=== PATIENT | male | born 1960 | race Caucasian/White ===

== ENCOUNTER 2022-08-05 14:19 | Emergency (ER) | payer BC, OTHER ==
[~2022-08-05] VITALS: Ht 182.9 cm; Wt 81.8 kg
[2022-08-05 14:28] VITALS: BP 120/90
[2022-08-06] MEDS ORDERED: CIPR-202 PO (11:09)
== END 2022-08-05 17:04 | disposition left against medical advice (07) ==
LOC: ER 14:19
DX: R79.9 Abnormal finding of blood chemistry, unspecified (principal); Z53.21 Procedure and treatment not carried out due to patient leaving prior to being seen by health care provider
CPT/HCPCS: 99281

== ENCOUNTER 2022-08-06 04:59 | Emergency (ER) | payer OTHER ==
[~2022-08-06] VITALS: Ht 182.9 cm; Wt 81.8 kg
[2022-08-06 08:41] LABS: CLARITY,URINE SLIGHTLY CLOUDY (Clear); COLOR,URINE YELLOW (Yellow); GLUCOSE, URINE NEGATIVE (Neg); KETONES,URINE NEGATIVE (Neg); LEUKOCYTE ESTERASE ,URINE NEGATIVE (Neg); NITRITES, URINE NEGATIVE (Neg); OCCULT BLOOD,URINE LARGE (Neg); PROTEIN,URINE NEGATIVE (Neg); UROBILINOGEN,URINE 0.2 E.U/dL (0.2-1.0)
[2022-08-06 08:55] LABS: UA COLLECTION TYPE CLN CATCH MIDSTREAM
[2022-08-06 08:58] LABS: BACTERIA,URINE FEW /HPF (Neg); MUCUS STRANDS NONE SEEN /LPF (Neg); RBC,URINE TNTC /HPF (0-2); SQUAMOUS EPITHELIAL CELL,UR FEW /LPF (FEW)
[2022-08-06 09:45] VITALS: BP 149/104
[2022-08-06] MEDS ORDERED: ciprofloxacin 250mg tablet PO ONE (11:05)
[2022-08-06] MEDS ORDERED: CIPR-202 PO (11:09)
== END 2022-08-06 11:39 | disposition home or self-care (01) ==
LOC: ER 05:00
DX: N39.0 Urinary tract infection, site not specified (principal); R31.9 Hematuria, unspecified; Z79.899 Other long term (current) drug therapy
CPT/HCPCS: 81001; 87088; 99285

== ENCOUNTER 2023-12-20 01:35 | Inpatient (IN) | payer OTHER ==
[~2023-12-20] VITALS: Ht 182.9 cm; Wt 82.5 kg
[2023-12-20] VITALS (16 sets, daily range): BP systolic 118–144; BP diastolic 80–98; PULSE 59–69; RESP 11–22; TEMP 97.1; O2SAT 92–95
[2023-12-20] MEDS: ondansetron/PF 4mg/2ml inj IV ONE (01:59)
[2023-12-20] MEDS: fentaNYL/PF 50MCG/1 ML 2ML syringe IV ONE ×2 (01:59→02:22)
[2023-12-20 02:07] LABS: BASOPHILS # (AUTO) 0.1 X10'3 (0-0.2); BASOPHILS % (AUTO) 0.9 % (0-1); EOSINOPHILS # (AUTO) 0.4 X10'3 (0-0.9); EOSINOPHILS % (AUTO) 2.7 % (0-6); HEMATOCRIT 44.9 % (42.0-52.0); HEMOGLOBIN 15.1 g/dl (14.0-17.9); LYMPHOCYTES # (AUTO) 1.9 X10'3 (1.1-4.8); LYMPHOCYTES % (AUTO) 13.6 % (21-51); MEAN CORPUSCULAR HEMOGLOBIN 29.4 PG (27.0-31.0); MEAN CORPUSCULAR HGB CONC 33.6 g/dL (33.0-36.5); MEAN CORPUSCULAR VOLUME 87.3 FL (78-98); MONOCYTES # (AUTO) 1.7 X10'3 (0-0.9); MONOCYTES % (AUTO) 12.2 % (2-12); NEUTROPHILS % (AUTO) 70.6 % (42-75); PLATELET COUNT 215 X10'3 (140-440); RED BLOOD COUNT 5.14 X10'6 (4.70-6.10); RED CELL DISTRIBUTION WIDTH 14.8 % (11.5-14.5); WHITE BLOOD COUNT 14.2 X10'3 (4.5-11.0)
[2023-12-20] MEDS ORDERED: iohexol 350MG/ML 100ml bottle IV ONE (02:20)
[2023-12-20 02:24] LABS: D-DIMER 19.14 MG/L FEU (0-0.50); INR 1.1 INR
[2023-12-20 02:27] LABS: ALBUMIN 3.8 G/DL (3.4-5.0); ANION GAP 9 (8-16); BLOOD UREA NITROGEN 29 MG/DL (7-18); BUN/CREATININE RATIO 16.1 (10.0-20.0); CALCIUM 8.7 MG/DL (8.5-10.1); CHLORIDE 104 MMOL/L (99-107); GLUCOSE 94 MG/DL (70-104); MAGNESIUM 2.3 MG/DL (1.5-2.4); POTASSIUM 3.6 MMOL/L (3.5-5.1); PRO BRAIN NATRIURETIC PEPTIDE 933 PG/ML (0-125); SODIUM 138 MMOL/L (135-145); TOTAL CARBON DIOXIDE 24.7 MMOL/L (24-32); eCRCL 47 ML/MIN; eGFR 38 ML/MIN
[2023-12-20] MEDS: niCARDipine-NS 40mg/200ml IVPB 200 ML IV ONE (02:57)
[2023-12-20] MEDS: morphine 10mg/ml inj. IV ONE (02:58)
[2023-12-20] MEDS: normal saline 1000ML IV soln IVB ONE (03:40)
[2023-12-20] MEDS: metoprolol tartrate 1mg/ml inj IV ONE ×2 (03:42→03:55)
[2023-12-20] MEDS ORDERED: acetaminophen 325mg tablet PO PRN (04:15)
[2023-12-20] MEDS: normal saline 1000ml 1,000 ML IV SCH (04:33)
[2023-12-20] MEDS: HYDROmorphone 1 mg/ml syringe IV ONE (04:34)
[2023-12-20 05:16] LABS: THYROID STIMULATING HORMONE 2.59 ulU/ml (0.34-4.50)
[2023-12-20] MEDS: morphine 2 MG/ML inj. syringe IV PRN (06:05)
[2023-12-20] MEDS: niCARDipine-NS 40mg/200ml IVPB 200 ML IV PRN (08:53)
[2023-12-20] MEDS: morphine 4 MG/ML inj SYRINge IV PRN (09:13)
[2023-12-20] MEDS ORDERED: NO HOME MEDS (10:52)
[2023-12-20] MEDS: hydrALAZINE 20mg/ml inj. IV SCH (10:57)
[2023-12-20] MEDS: folic acid 1mg tablet PO SCH (11:11)
[2023-12-20] MEDS: metoprolol tartrate 50mg tablet PO SCH (11:11)
[2023-12-20] MEDS: MULTIVIT-MIN/FERROUS GLUCONATE 9 MG/15 ML LIQUID PO SCH (11:11)
[2023-12-20] MEDS: thiamine 100mg tablet PO SCH (11:12)
[2023-12-20] MEDS: HYDROmorphone 1 mg/ml syringe IV PRN (11:14)
[2023-12-20] MEDS: ondansetron/PF 4mg/2ml inj IV PRN (19:37)
[2023-12-21] VITALS (23 sets, daily range): BP systolic 102–156; BP diastolic 48–92; PULSE 57–77; RESP 11–29; O2SAT 90–96
[2023-12-21 02:19] LABS: BASOPHILS # (AUTO) 0.1 X10'3 (0-0.2); BASOPHILS % (AUTO) 0.4 % (0-1); EOSINOPHILS # (AUTO) 0.1 X10'3 (0-0.9); EOSINOPHILS % (AUTO) 0.4 % (0-6); HEMATOCRIT 42.8 % (42.0-52.0); HEMOGLOBIN 14.1 g/dl (14.0-17.9); LYMPHOCYTES # (AUTO) 0.7 X10'3 (1.1-4.8); LYMPHOCYTES % (AUTO) 4.2 % (21-51); MEAN PLATELET VOLUME 8.1 FL (7.4-10.4); MONOCYTES # (AUTO) 2.2 X10'3 (0-0.9); NEUTROPHILS # (AUTO) 12.7 X10'3 (1.8-7.7); PLATELET COUNT 189 X10'3 (140-440); RED BLOOD COUNT 4.86 X10'6 (4.70-6.10); RED CELL DISTRIBUTION WIDTH 14.9 % (11.5-14.5); WHITE BLOOD COUNT 15.7 X10'3 (4.5-11.0)
[2023-12-21 02:33] LABS: ALBUMIN 3.4 G/DL (3.4-5.0); ALBUMIN/GLOBULIN RATIO 0.9 (1.1-1.5); ALKALINE PHOSPHATASE 72 IU/L (46-116); ANION GAP 9 (8-16); ASPARTATE AMINO TRANSFERASE 7 U/L (10-37); BILIRUBIN,TOTAL 0.6 MG/DL (0.1-1.0); BLOOD UREA NITROGEN 31 MG/DL (7-18); BUN/CREATININE RATIO 18.3 (10.0-20.0); CALCIUM 8.5 MG/DL (8.5-10.1); CHLORIDE 104 MMOL/L (99-107); CREATININE 1.69 MG/DL (0.60-1.10); GLUCOSE 122 MG/DL (70-104); POTASSIUM 3.8 MMOL/L (3.5-5.1); SODIUM 137 MMOL/L (135-145); TOTAL CARBON DIOXIDE 23.7 MMOL/L (24-32); TOTAL PROTEIN 7.1 G/DL (6.4-8.2); eCRCL 50 ML/MIN; eGFR 41 ML/MIN
[2023-12-21 02:49] LABS: ALANINE AMINOTRANSFERASE < 6 U/L (12-78)
[2023-12-21] MEDS: HYDROmorphone 1 mg/ml syringe IV PRN ×3 (06:51→15:20)
[2023-12-21] MEDS ORDERED: chlordiazePOXIDE 25mg capsule PO PRN (08:35)
[2023-12-21] MEDS: NIFEdipine XL 30mg tablet PO SCH (09:22)
[2023-12-21] MEDS: chlordiazePOXIDE 25mg capsule PO SCH (09:53)
[2023-12-21] MEDS: HYDROcodone/acetaminophen 10/325mg tab PO SCH (11:02)
[2023-12-21] MEDS ORDERED: iohexol 350MG/ML 100ml bottle IV ONE (11:10)
[2023-12-21] MEDS: pantoprazole 40 MG vial IV SCH (11:59)
[2023-12-21] MEDS: docusate sod 100mg capsule PO SCH (11:59)
[2023-12-21] MEDS: normal saline 1000ml 1,000 ML IV SCH (16:17)
[2023-12-21] MEDS: labetalol 20mg/4ml (5mg/ml) syringe IV PRN (17:26)
[2023-12-22] VITALS (24 sets, daily range): BP systolic 112–143; BP diastolic 47–102; PULSE 67–88; RESP 12–21; O2SAT 90–95
[2023-12-22 04:30] LABS: BASOPHILS % (AUTO) 0.3 % (0-1); EOSINOPHILS # (AUTO) 0.1 X10'3 (0-0.9); EOSINOPHILS % (AUTO) 0.5 % (0-6); HEMATOCRIT 39.8 % (42.0-52.0); HEMOGLOBIN 13.2 g/dl (14.0-17.9); MEAN CORPUSCULAR HEMOGLOBIN 29.1 PG (27.0-31.0); MEAN CORPUSCULAR HGB CONC 33.2 g/dL (33.0-36.5); MEAN CORPUSCULAR VOLUME 87.6 FL (78-98); MEAN PLATELET VOLUME 8.3 FL (7.4-10.4); MONOCYTES # (AUTO) 2.6 X10'3 (0-0.9); NEUTROPHILS # (AUTO) 10.8 X10'3 (1.8-7.7); NEUTROPHILS % (AUTO) 74.2 % (42-75); PLATELET COUNT 146 X10'3 (140-440); RED BLOOD COUNT 4.55 X10'6 (4.70-6.10); RED CELL DISTRIBUTION WIDTH 14.6 % (11.5-14.5); WHITE BLOOD COUNT 14.5 X10'3 (4.5-11.0)
[2023-12-22 04:38] LABS: ALANINE AMINOTRANSFERASE 12 U/L (12-78); ALBUMIN/GLOBULIN RATIO 0.8 (1.1-1.5); ALKALINE PHOSPHATASE 66 IU/L (46-116); ANION GAP 11 (8-16); ASPARTATE AMINO TRANSFERASE 5 U/L (10-37); BILIRUBIN,TOTAL 0.5 MG/DL (0.1-1.0); BLOOD UREA NITROGEN 30 MG/DL (7-18); BUN/CREATININE RATIO 19.2 (10.0-20.0); CALCIUM 8.5 MG/DL (8.5-10.1); CHLORIDE 105 MMOL/L (99-107); CREATININE 1.56 MG/DL (0.60-1.10); GLUCOSE 112 MG/DL (70-104); POTASSIUM 3.8 MMOL/L (3.5-5.1); SODIUM 136 MMOL/L (135-145); TOTAL CARBON DIOXIDE 20.1 MMOL/L (24-32); TOTAL PROTEIN 6.6 G/DL (6.4-8.2); eCRCL 54 ML/MIN; eGFR 45 ML/MIN
[2023-12-22 04:56] LABS: PLATELET ESTIMATE NORMAL; TOTAL CELLS COUNTED 100
[2023-12-22] MEDS: multivitamins, therapeutics tablet PO SCH (07:21)
[2023-12-22] MEDS: magnesium hydroxide 30ml (MOM) UD suspension PO PRN (08:30)
[2023-12-22 11:14] LABS: ABG BASE EXCESS -4.2 mmol/L (-2.0-3.0); ABG HCO3 19.5 mmol/L (21.0-28.0); ABG PCO2 (T) 33.5 mmHg (35.0-48.0); ABG PH (T) 7.388 (7.350-7.450); ABG PO2 (T) 68.9 mmHg (83.0-108.0); ALLEN'S TEST POSITIVE; FCOHb 0.8 % (0.5-1.5); FHHb 6.9 % (0.0-5.0); FMetHb 0.3 % (0.0-1.5); MODE Simple mask; PATIENT TEMPERATURE 38.1; TOTAL HEMOGLOBIN 14.2 G/dl (13.5-17.5)
[2023-12-22] MEDS: acetaminophen 325mg tablet PO PRN (16:34)
[2023-12-22] MEDS ORDERED: chlordiazePOXIDE 25mg capsule PO PRN (19:10)
[2023-12-22] MEDS: levoFLOXACIN-Levaquin 750MG/D5 150 ML IV STA (19:17)
[2023-12-22 19:24] LABS: BILIRUBIN,URINE NEGATIVE (Neg); CLARITY,URINE SLIGHTLY CLOUDY (Clear); COLOR,URINE YELLOW (Yellow); GLUCOSE, URINE NEGATIVE (Neg); KETONES,URINE NEGATIVE (Neg); LEUKOCYTE ESTERASE ,URINE TRACE (Neg); OCCULT BLOOD,URINE MODERATE (Neg); PROTEIN,URINE 30 mg/dl (Neg); UROBILINOGEN,URINE 0.2 E.U/dL (0.2-1.0)
[2023-12-22 19:45] LABS: NITRITES, URINE NEGATIVE (Neg); UA COLLECTION TYPE NON-SPECIFIED
[2023-12-22 19:47] LABS: RBC,URINE 20-50 /HPF (0-2)
[2023-12-22 19:48] LABS: BACTERIA,URINE 1+ /HPF (Neg); FINE GRANULAR CAST 0-3 /LPF (NEGATIVE); MUCUS STRANDS FEW /LPF (Neg); SQUAMOUS EPITHELIAL CELL,UR FEW /LPF (FEW)
[2023-12-22] MEDS: chlordiazePOXIDE 25mg capsule PO SCH (20:12)
[2023-12-22] MEDS: CefTRIAXone/D5W-Rocephin 1gm 50 ML IV ONE (20:12)
[2023-12-22] MEDS: HYDROcodone/acetaminophen 10/325mg tab PO PRN (21:35)
[2023-12-22 23:17] LABS: URINE AMPHETAMINE SCREEN POSITIVE (Neg); URINE BARBITUATE SCREEN NEGATIVE (Neg); URINE BENZODIAZEPINES SCREEN POSITIVE (Neg); URINE CANNABINOID SCREEN NEGATIVE (Neg); URINE COCAINE SCREEN NEGATIVE (Neg); URINE METHADONE SCREEN NEGATIVE (Neg); URINE OPIATE SCREEN POSITIVE (Neg); URINE PHENCYCLIDINE SCREEN NEGATIVE (Neg)
[2023-12-23] VITALS (24 sets, daily range): BP systolic 101–125; BP diastolic 56–84; PULSE 71–92; RESP 12–31; O2SAT 89–95
[2023-12-23 01:39] LABS: ABG BASE EXCESS -5.6 mmol/L (-2.0-3.0); ABG HCO3 17.6 mmol/L (21.0-28.0); ABG OXYGEN SATURATION 89.6 % (94.0-98.0); ABG PCO2 (T) 29.2 mmHg (35.0-48.0); ABG PH (T) 7.401 (7.350-7.450); ABG PO2 (T) 57.5 mmHg (83.0-108.0); ALLEN'S TEST Modified; FCOHb 0.7 % (0.5-1.5); FHHb 10.3 % (0.0-5.0); FLOW 12 L/min; FMetHb 0.3 % (0.0-1.5); FO2Hb 88.7 % (94.0-98.0); MODE Salter-HFNC; PATIENT TEMPERATURE 37.7; TOTAL HEMOGLOBIN 13.4 G/dl (13.5-17.5)
[2023-12-23 03:57] LABS: BASOPHILS % (AUTO) 0.3 % (0-1); EOSINOPHILS # (AUTO) 0.2 X10'3 (0-0.9); EOSINOPHILS % (AUTO) 1.3 % (0-6); HEMATOCRIT 37.8 % (42.0-52.0); HEMOGLOBIN 12.6 g/dl (14.0-17.9); LYMPHOCYTES % (AUTO) 6.9 % (21-51); MEAN CORPUSCULAR HEMOGLOBIN 29.2 PG (27.0-31.0); MEAN CORPUSCULAR HGB CONC 33.3 g/dL (33.0-36.5); MEAN CORPUSCULAR VOLUME 87.9 FL (78-98); MEAN PLATELET VOLUME 8.7 FL (7.4-10.4); MONOCYTES # (AUTO) 2.6 X10'3 (0-0.9); MONOCYTES % (AUTO) 17.9 % (2-12); NEUTROPHILS # (AUTO) 10.9 X10'3 (1.8-7.7); NEUTROPHILS % (AUTO) 73.6 % (42-75); PLATELET COUNT 152 X10'3 (140-440); RED CELL DISTRIBUTION WIDTH 14.9 % (11.5-14.5); WHITE BLOOD COUNT 14.8 X10'3 (4.5-11.0)
[2023-12-23 04:12] LABS: ALANINE AMINOTRANSFERASE 12 U/L (12-78); ALBUMIN 2.5 G/DL (3.4-5.0); ALBUMIN/GLOBULIN RATIO 0.7 (1.1-1.5); ALKALINE PHOSPHATASE 59 IU/L (46-116); ANION GAP 10 (8-16); ASPARTATE AMINO TRANSFERASE 16 U/L (10-37); BILIRUBIN,TOTAL 0.4 MG/DL (0.1-1.0); BLOOD UREA NITROGEN 36 MG/DL (7-18); BUN/CREATININE RATIO 22.1 (10.0-20.0); CALCIUM 8.3 MG/DL (8.5-10.1); CHLORIDE 106 MMOL/L (99-107); CREATININE 1.63 MG/DL (0.60-1.10); GLUCOSE 126 MG/DL (70-104); POTASSIUM 3.8 MMOL/L (3.5-5.1); SODIUM 136 MMOL/L (135-145); TOTAL CARBON DIOXIDE 19.6 MMOL/L (24-32); TOTAL PROTEIN 6.3 G/DL (6.4-8.2); eCRCL 52 ML/MIN; eGFR 43 ML/MIN
[2023-12-23 05:20] LABS: ABG BASE EXCESS -5.9 mmol/L (-2.0-3.0); ABG HCO3 17.5 mmol/L (21.0-28.0); ABG OXYGEN SATURATION 88.3 % (94.0-98.0); ABG PCO2 (T) 30.1 mmHg (35.0-48.0); ABG PH (T) 7.387 (7.350-7.450); ABG PO2 (T) 56.2 mmHg (83.0-108.0); ALLEN'S TEST Modified; FCOHb 0.8 % (0.5-1.5); FHHb 11.6 % (0.0-5.0); FLOW 25 L/min; FMetHb 0.3 % (0.0-1.5); FO2Hb 87.3 % (94.0-98.0); TOTAL HEMOGLOBIN 13.6 G/dl (13.5-17.5)
[2023-12-23 05:33] LABS: MAGNESIUM 1.9 MG/DL (1.5-2.4)
[2023-12-23] MEDS: levoFLOXACIN-Levaquin 750MG/D5 150 ML IV SCH (07:10)
[2023-12-23] MEDS: CefTRIAXone/D5W-Rocephin 1gm 50 ML IV SCH (07:10)
[2023-12-23] MEDS: furosemide 10 MG/1 ML 10ml inj IV ONE (09:01)
[2023-12-23] MEDS: lactose-reduced food (Ensure Enlive) - 237ml bottle PO SCH (13:08)
[2023-12-23] MEDS ORDERED: magnesium sulf-water 4G/100mL 100 ML IV PRN (16:05)
[2023-12-23] MEDS ORDERED: potassium Cl 20 mEq SR tablet PO PRN ×2 (16:05)
[2023-12-23] MEDS ORDERED: magnesium sulf-water 2g/50mL 50 ML IV PRN (16:05)
[2023-12-23] MEDS ORDERED: magnesium Cl slow-release 64mg tablet PO PRN (16:05)
[2023-12-23] MEDS: heparin, porcine 5000 units/ml vial SQ SCH (16:55)
[2023-12-23] MEDS: K and/or MAG REPLACEMENT MC SCH (18:56)
[2023-12-23] MEDS: cloNIDine 0.1 mg tablet PO PRN (19:38)
[2023-12-23] MEDS: potassium Cl 40MEQ/1/2NS 520ml 520 ML IV PRN (19:57)
== END 2023-12-23 21:02 | disposition left against medical advice (07) | DRG 189 ==
LOC: ER 01:36 → ED HOLD 04:18 → CICU 2S 08:00
PROVIDERS: ADMIT Student in an Organized Health Care Education/Training Program; ATTEND Family Medicine
PROC: 5A0935A Assistance with Respiratory Ventilation, Less than 24 Consecutive Hours, High Flow/Velocity Cannula (ICD-10-PCS; principal; 2023-12-23)
DX: J96.01 Acute respiratory failure with hypoxia (principal); I71.019 Dissection of thoracic aorta, unspecified; J18.9 Pneumonia, unspecified organism; N17.0 Acute kidney failure with tubular necrosis; R91.1 Solitary pulmonary nodule; K59.00 Constipation, unspecified; Z53.21 Procedure and treatment not carried out due to patient leaving prior to being seen by health care provider; F10.10 Alcohol abuse, uncomplicated; I10 Essential (primary) hypertension; Z85.46 Personal history of malignant neoplasm of prostate; Z87.891 Personal history of nicotine dependence
CPT/HCPCS: 36415; 36600; 71045; 71275; 74174; 80048; 80053; 80305; 81001; 82803; 82948; 83605; 83735; 83880; 84132; 84145; 84443; 84484; 85007; 85018; 85025; 85379; 85610; 86885; 86900; 86901; 87040; 87077; 87081; 87088; 87186; 93005; 93306; 93970; 94668; 94760; 96365; 96375; 97161; 97530; 99291; A4615; A4620; A6449; G0378; J0360; J0696; J1170; J1171; J1644; J1940; J1956; J2270; J2274; J2405; J2470; J3010; J3480; J3490; J7030; J7040; Q9967

== ENCOUNTER 2023-12-23 23:04 | Inpatient (IN) | payer OTHER ==
[~2023-12-23] VITALS: Ht 182.9 cm; Wt 81.0 kg
[~2023-12-23 23:04] MED LIST: NO HOME MEDS
[2023-12-23 23:53] LABS: BASOPHILS % (AUTO) 0.3 % (0-1); EOSINOPHILS # (AUTO) 0.2 X10'3 (0-0.9); EOSINOPHILS % (AUTO) 1.6 % (0-6); HEMATOCRIT 37.6 % (42.0-52.0); HEMOGLOBIN 12.5 g/dl (14.0-17.9); LYMPHOCYTES # (AUTO) 0.7 X10'3 (1.1-4.8); MEAN CORPUSCULAR HEMOGLOBIN 28.9 PG (27.0-31.0); MEAN CORPUSCULAR HGB CONC 33.2 g/dL (33.0-36.5); MEAN CORPUSCULAR VOLUME 87.2 FL (78-98); MEAN PLATELET VOLUME 8.9 FL (7.4-10.4); MONOCYTES # (AUTO) 2.4 X10'3 (0-0.9); MONOCYTES % (AUTO) 16.3 % (2-12); NEUTROPHILS # (AUTO) 11.3 X10'3 (1.8-7.7); NEUTROPHILS % (AUTO) 76.8 % (42-75); PLATELET COUNT 199 X10'3 (140-440); RED BLOOD COUNT 4.32 X10'6 (4.70-6.10); RED CELL DISTRIBUTION WIDTH 15.1 % (11.5-14.5); WHITE BLOOD COUNT 14.7 X10'3 (4.5-11.0)
[2023-12-24] VITALS (15 sets, daily range): BP systolic 104–150; BP diastolic 73–101; PULSE 89–117; RESP 17–23; TEMP 97.9–98.1; O2SAT 96–99
[2023-12-24 00:10] LABS: ALANINE AMINOTRANSFERASE 21 U/L (12-78); ALBUMIN 2.6 G/DL (3.4-5.0); ALBUMIN/GLOBULIN RATIO 0.6 (1.1-1.5); ALKALINE PHOSPHATASE 62 IU/L (46-116); ANION GAP 13 (8-16); ASPARTATE AMINO TRANSFERASE 22 U/L (10-37); BILIRUBIN,TOTAL 0.4 MG/DL (0.1-1.0); BLOOD UREA NITROGEN 43 MG/DL (7-18); BUN/CREATININE RATIO 20.8 (10.0-20.0); CALCIUM 8.2 MG/DL (8.5-10.1); CHLORIDE 105 MMOL/L (99-107); CREATININE 2.07 MG/DL (0.60-1.10); GLUCOSE 109 MG/DL (70-104); POTASSIUM 3.9 MMOL/L (3.5-5.1); SODIUM 137 MMOL/L (135-145); TOTAL CARBON DIOXIDE 19.5 MMOL/L (24-32); TOTAL PROTEIN 6.7 G/DL (6.4-8.2); eCRCL 41 ML/MIN; eGFR 33 ML/MIN
[2023-12-24 00:20] LABS: PRO BRAIN NATRIURETIC PEPTIDE 1864 PG/ML (0-125)
[2023-12-24 00:36] LABS: APTT 32 SECONDS (22-32); INR 1.1 INR; PROTHROMBIN TIME 11.9 SECONDS (9.0-12.0)
[2023-12-24] MEDS ORDERED: haloperidol 5mg tablet PO PRN (01:00)
[2023-12-24] MEDS ORDERED: mag hydrox/Alum hydrox/simeth 30ml oral suspension PO PRN (01:00)
[2023-12-24] MEDS ORDERED: dextrose 50%-water 50ml dispensing syringe IV PRN (01:00)
[2023-12-24] MEDS ORDERED: magnesium sulf-water 4G/100mL 100 ML IV PRN (01:00)
[2023-12-24] MEDS ORDERED: magnesium Cl slow-release 64mg tablet PO PRN (01:00)
[2023-12-24] MEDS ORDERED: LORazepam 1 MG tablet PO PRN (01:00)
[2023-12-24] MEDS ORDERED: potassium Cl 20 mEq SR tablet PO PRN ×2 (01:00)
[2023-12-24] MEDS ORDERED: magnesium sulf-water 2g/50mL 50 ML IV PRN (01:00)
[2023-12-24] MEDS ORDERED: acetaminophen 325mg tablet PO PRN (01:00)
[2023-12-24] MEDS: HYDROmorphone inj. 0.5 MG/0.5 ML DISP.SYRIN IV PRN (01:15)
[2023-12-24] MEDS: ondansetron/PF 4mg/2ml inj IV PRN (01:15)
[2023-12-24] MEDS: amLODIPine 5mg tablet PO ONE (01:30)
[2023-12-24] MEDS: normal saline 1000ml 1,000 ML IV SCH (01:58)
[2023-12-24] MEDS: normal saline 500ml IV soln 500 ML IV ONE (01:59)
[2023-12-24] MEDS: K and/or MAG REPLACEMENT MC SCH (08:00)
[2023-12-24] MEDS ORDERED: losartan 25mg tablet PO SCH (08:00)
[2023-12-24] MEDS ORDERED: carVEDilol 12.5mg tablet PO SCH (08:00)
[2023-12-24] MEDS: levoFLOXACIN-Levaquin 750MG/D5 150 ML IV SCH (08:41)
[2023-12-24] MEDS: thiamine 100mg/ml 2ml inj. IV SCH (08:48)
[2023-12-24] MEDS: folic acid 1mg/0.2ml inj IV SCH (09:26)
[2023-12-24] MEDS: LORazepam 2 mg/ml vial IV PRN ×2 (09:29→17:28)
[2023-12-24] MEDS: metoprolol tartrate 1mg/ml inj IV ONE ×2 (11:15→17:28)
[2023-12-24] MEDS: ipratropium 0.5 MG/2.5ML nebule IH SCH (12:00)
[2023-12-24 13:59] LABS: URINE AMPHETAMINE SCREEN NEGATIVE (Neg); URINE BARBITUATE SCREEN NEGATIVE (Neg); URINE BENZODIAZEPINES SCREEN POSITIVE (Neg); URINE CANNABINOID SCREEN NEGATIVE (Neg); URINE COCAINE SCREEN NEGATIVE (Neg); URINE METHADONE SCREEN NEGATIVE (Neg); URINE OPIATE SCREEN POSITIVE (Neg); URINE PHENCYCLIDINE SCREEN NEGATIVE (Neg)
[2023-12-24 14:33] LABS: ALANINE AMINOTRANSFERASE 20 U/L (12-78); ALBUMIN 2.3 G/DL (3.4-5.0); ALBUMIN/GLOBULIN RATIO 0.6 (1.1-1.5); ALKALINE PHOSPHATASE 51 IU/L (46-116); ANION GAP 11 (8-16); ASPARTATE AMINO TRANSFERASE 18 U/L (10-37); BILIRUBIN,TOTAL 0.5 MG/DL (0.1-1.0); BLOOD UREA NITROGEN 37 MG/DL (7-18); BUN/CREATININE RATIO 22.2 (10.0-20.0); CALCIUM 8.1 MG/DL (8.5-10.1); CHLORIDE 106 MMOL/L (99-107); CREATININE 1.67 MG/DL (0.60-1.10); GLUCOSE 90 MG/DL (70-104); POTASSIUM 3.4 MMOL/L (3.5-5.1); SODIUM 138 MMOL/L (135-145); TOTAL CARBON DIOXIDE 20.8 MMOL/L (24-32); TOTAL PROTEIN 6.2 G/DL (6.4-8.2); eCRCL 50 ML/MIN; eGFR 42 ML/MIN
[2023-12-24] MEDS: haloperidol lactate 5mg/ml inj IM PRN (16:50)
[2023-12-24] MEDS: vancomycin/NS 1 GM ADD-VANTAGE 250 ML IV SCH (17:43)
[2023-12-24] MEDS ORDERED: metoprolol tartrate 25mg tablet PO SCH (20:00)
[2023-12-24] MEDS: diltiazem-NS 100mg/100ml 100 ML IV SCH (22:08)
[2023-12-25] VITALS (30 sets, daily range): BP systolic 103–150; BP diastolic 77–98; PULSE 65–119; RESP 17–30; TEMP 97.3–99.5; O2SAT 88–98
[2023-12-25] MEDS: haloperidol lactate 5mg/ml inj IM PRN (01:30)
[2023-12-25 07:53] LABS: BASOPHILS % (AUTO) 0.4 % (0-1); EOSINOPHILS # (AUTO) 0.2 X10'3 (0-0.9); EOSINOPHILS % (AUTO) 1.4 % (0-6); HEMATOCRIT 36.3 % (42.0-52.0); HEMOGLOBIN 12.1 g/dl (14.0-17.9); LYMPHOCYTES # (AUTO) 0.7 X10'3 (1.1-4.8); LYMPHOCYTES % (AUTO) 6.4 % (21-51); MEAN CORPUSCULAR HEMOGLOBIN 29.1 PG (27.0-31.0); MEAN CORPUSCULAR HGB CONC 33.3 g/dL (33.0-36.5); MEAN CORPUSCULAR VOLUME 87.2 FL (78-98); MEAN PLATELET VOLUME 8.6 FL (7.4-10.4); MONOCYTES % (AUTO) 17.7 % (2-12); NEUTROPHILS # (AUTO) 8.4 X10'3 (1.8-7.7); NEUTROPHILS % (AUTO) 74.1 % (42-75); PLATELET COUNT 203 X10'3 (140-440); RED BLOOD COUNT 4.17 X10'6 (4.70-6.10); RED CELL DISTRIBUTION WIDTH 15.2 % (11.5-14.5); WHITE BLOOD COUNT 11.3 X10'3 (4.5-11.0)
[2023-12-25 08:09] LABS: ALBUMIN 2.6 G/DL (3.4-5.0); ANION GAP 15 (8-16); BLOOD UREA NITROGEN 25 MG/DL (7-18); BUN/CREATININE RATIO 17.6 (10.0-20.0); CALCIUM 8.4 MG/DL (8.5-10.1); CHLORIDE 106 MMOL/L (99-107); CREATININE 1.42 MG/DL (0.60-1.10); GLUCOSE 83 MG/DL (70-104); MAGNESIUM 1.8 MG/DL (1.5-2.4); POTASSIUM 3.2 MMOL/L (3.5-5.1); SODIUM 142 MMOL/L (135-145); TOTAL CARBON DIOXIDE 20.8 MMOL/L (24-32); eCRCL 59 ML/MIN; eGFR 51 ML/MIN
[2023-12-25 08:29] LABS: PLATELET ESTIMATE NORMAL; TOTAL CELLS COUNTED 100
[2023-12-25] MEDS: potassium Cl 40MEQ/1/2NS 520ml 520 ML IV PRN (08:58)
[2023-12-25 09:28] LABS: ETHANOL < 10 MG/DL (<10)
[2023-12-25 11:28] LABS: FERRITIN 738 NG/ML (26-388)
[2023-12-25] MEDS ORDERED: FINA5TAB11 PO (12:08)
[2023-12-25] MEDS ORDERED: FLO0.4C PO (12:08)
[2023-12-25] MEDS ORDERED: vancomycin/NS 1 GM ADD-VANTAGE 250 ML IV SCH (12:31)
[2023-12-25] MEDS: lactose-reduced food (Ensure Enlive) - 237ml bottle PO SCH (13:00)
[2023-12-25] MEDS: metoprolol tartrate 1mg/ml inj IV SCH (14:21)
[2023-12-25] MEDS: normal saline 1000ml 1,000 ML IV SCH (14:25)
[2023-12-25] MEDS: ipratropium 0.5 MG/2.5ML nebule IH SCH (15:19)
[2023-12-25] MEDS: labetalol 20mg/4ml (5mg/ml) syringe IV ONE ×2 (20:30→22:11)
[2023-12-25] MEDS ORDERED: esmolol/sodium cl bag 250 ML IV SCH (20:30)
[2023-12-25] MEDS: vancomycin/NS 1 GM ADD-VANTAGE 250 ML IV SCH (20:52)
[2023-12-25] MEDS: nitroGLYCERIN-Tridil 50MG/D5W 250 ML IV SCH (20:54)
[2023-12-26] VITALS (19 sets, daily range): BP systolic 115–146; BP diastolic 77–95; PULSE 73–93; RESP 17–26; TEMP 97–100.9; O2SAT 92–96
[2023-12-26] MEDS: HYDROmorphone/PF 0.2 MG/ML SYRINGE IV PRN (01:22)
[2023-12-26 06:43] LABS: ALBUMIN 2.6 G/DL (3.4-5.0); ANION GAP 14 (8-16); BLOOD UREA NITROGEN 23 MG/DL (7-18); BUN/CREATININE RATIO 15.5 (10.0-20.0); CALCIUM 8.4 MG/DL (8.5-10.1); CHLORIDE 109 MMOL/L (99-107); CREATININE 1.48 MG/DL (0.60-1.10); GLUCOSE 99 MG/DL (70-104); POTASSIUM 3.5 MMOL/L (3.5-5.1); SODIUM 144 MMOL/L (135-145); TOTAL CARBON DIOXIDE 21.4 MMOL/L (24-32); eCRCL 57 ML/MIN; eGFR 48 ML/MIN
[2023-12-26 06:45] LABS: BASOPHILS # (AUTO) 0.1 X10'3 (0-0.2); BASOPHILS % (AUTO) 0.4 % (0-1); EOSINOPHILS # (AUTO) 0.2 X10'3 (0-0.9); EOSINOPHILS % (AUTO) 2.1 % (0-6); HEMOGLOBIN 11.9 g/dl (14.0-17.9); LYMPHOCYTES # (AUTO) 0.6 X10'3 (1.1-4.8); LYMPHOCYTES % (AUTO) 5.6 % (21-51); MEAN CORPUSCULAR HEMOGLOBIN 28.9 PG (27.0-31.0); MEAN CORPUSCULAR HGB CONC 33.1 g/dL (33.0-36.5); MEAN CORPUSCULAR VOLUME 87.2 FL (78-98); MEAN PLATELET VOLUME 8.8 FL (7.4-10.4); MONOCYTES # (AUTO) 1.9 X10'3 (0-0.9); MONOCYTES % (AUTO) 16.4 % (2-12); NEUTROPHILS # (AUTO) 8.6 X10'3 (1.8-7.7); NEUTROPHILS % (AUTO) 75.5 % (42-75); PLATELET COUNT 243 X10'3 (140-440); RED BLOOD COUNT 4.13 X10'6 (4.70-6.10); WHITE BLOOD COUNT 11.3 X10'3 (4.5-11.0)
[2023-12-26 07:44] LABS: TOTAL CELLS COUNTED 100
[2023-12-26 07:45] LABS: PLATELET ESTIMATE NORMAL
[2023-12-26 08:13] LABS: PROSTATE SPECIFIC AG, SERUM 20.2 ng/mL (0.0-4.0); PSA, FREE 1.61 ng/mL
[2023-12-26] MEDS: labetalol 20mg/4ml (5mg/ml) syringe IV PRN (09:40)
[2023-12-26] MEDS: magnesium hydroxide 30ml (MOM) UD suspension PO PRN (09:49)
[2023-12-26] MEDS: VANCOMYCIN LEVEL IV ONE (19:38)
[2023-12-26] MEDS: acetaminophen 1,000mg/100ml IV 100 ML IV ONE (22:52)
[2023-12-27] VITALS (19 sets, daily range): BP systolic 113–166; BP diastolic 76–109; PULSE 79–110; RESP 14–32; TEMP 96.8–98.9; O2SAT 93–97
[2023-12-27 07:15] LABS: BASOPHILS % (AUTO) 0.3 % (0-1); EOSINOPHILS # (AUTO) 0.3 X10'3 (0-0.9); EOSINOPHILS % (AUTO) 2.2 % (0-6); HEMATOCRIT 36.9 % (42.0-52.0); HEMOGLOBIN 12.1 g/dl (14.0-17.9); LYMPHOCYTES # (AUTO) 0.6 X10'3 (1.1-4.8); LYMPHOCYTES % (AUTO) 4.8 % (21-51); MEAN CORPUSCULAR HEMOGLOBIN 28.8 PG (27.0-31.0); MEAN CORPUSCULAR HGB CONC 32.9 g/dL (33.0-36.5); MEAN CORPUSCULAR VOLUME 87.3 FL (78-98); MEAN PLATELET VOLUME 8.3 FL (7.4-10.4); MONOCYTES # (AUTO) 2.3 X10'3 (0-0.9); MONOCYTES % (AUTO) 16.9 % (2-12); NEUTROPHILS # (AUTO) 10.1 X10'3 (1.8-7.7); NEUTROPHILS % (AUTO) 75.8 % (42-75); PLATELET COUNT 257 X10'3 (140-440); RED BLOOD COUNT 4.22 X10'6 (4.70-6.10); RED CELL DISTRIBUTION WIDTH 15.3 % (11.5-14.5); WHITE BLOOD COUNT 13.3 X10'3 (4.5-11.0)
[2023-12-27 07:25] LABS: ALBUMIN 2.7 G/DL (3.4-5.0); ANION GAP 11 (8-16); BLOOD UREA NITROGEN 22 MG/DL (7-18); BUN/CREATININE RATIO 15.2 (10.0-20.0); CALCIUM 8.5 MG/DL (8.5-10.1); CHLORIDE 108 MMOL/L (99-107); CREATININE 1.45 MG/DL (0.60-1.10); GLUCOSE 95 MG/DL (70-104); POTASSIUM 3.5 MMOL/L (3.5-5.1); SODIUM 141 MMOL/L (135-145); eCRCL 58 ML/MIN; eGFR 49 ML/MIN
[2023-12-27] MEDS: nitroGLYCERIN-Tridil 50MG/D5W 250 ML IV SCH (13:00)
[2023-12-27] MEDS: chlordiazePOXIDE 25mg capsule PO SCH (17:25)
[2023-12-27] MEDS ORDERED: labetalol 20mg/4ml (5mg/ml) syringe IV SCH (20:00)
[2023-12-27] MEDS: labetalol 100mg tablet PO SCH (21:13)
[2023-12-28] VITALS (26 sets, daily range): BP systolic 111–145; BP diastolic 74–97; PULSE 67–93; RESP 16–24; TEMP 97.7–99.8; O2SAT 93–95
[2023-12-28 07:52] LABS: BASOPHILS # (AUTO) 0.1 X10'3 (0-0.2); BASOPHILS % (AUTO) 0.5 % (0-1); EOSINOPHILS # (AUTO) 0.2 X10'3 (0-0.9); EOSINOPHILS % (AUTO) 1.2 % (0-6); HEMATOCRIT 36.9 % (42.0-52.0); HEMOGLOBIN 12.1 g/dl (14.0-17.9); LYMPHOCYTES % (AUTO) 7.6 % (21-51); MEAN CORPUSCULAR HEMOGLOBIN 28.7 PG (27.0-31.0); MEAN CORPUSCULAR HGB CONC 32.9 g/dL (33.0-36.5); MEAN CORPUSCULAR VOLUME 87.3 FL (78-98); MEAN PLATELET VOLUME 8.4 FL (7.4-10.4); MONOCYTES # (AUTO) 2.3 X10'3 (0-0.9); MONOCYTES % (AUTO) 16.8 % (2-12); NEUTROPHILS % (AUTO) 73.9 % (42-75); PLATELET COUNT 270 X10'3 (140-440); RED BLOOD COUNT 4.23 X10'6 (4.70-6.10); RED CELL DISTRIBUTION WIDTH 15.1 % (11.5-14.5); WHITE BLOOD COUNT 13.5 X10'3 (4.5-11.0)
[2023-12-28 07:54] LABS: ALBUMIN 2.4 G/DL (3.4-5.0); ANION GAP 10 (8-16); BLOOD UREA NITROGEN 25 MG/DL (7-18); BUN/CREATININE RATIO 16.2 (10.0-20.0); C-REACTIVE PROTEIN 23.18 MG/DL (0.0-0.5); CALCIUM 8.3 MG/DL (8.5-10.1); CHLORIDE 109 MMOL/L (99-107); CREATININE 1.54 MG/DL (0.60-1.10); GLUCOSE 102 MG/DL (70-104); MAGNESIUM 2.3 MG/DL (1.5-2.4); POTASSIUM 3.7 MMOL/L (3.5-5.1); SODIUM 142 MMOL/L (135-145); TOTAL CARBON DIOXIDE 23.3 MMOL/L (24-32); eCRCL 55 ML/MIN; eGFR 46 ML/MIN
[2023-12-28] MEDS: tamsulosin 0.4mg capsule PO SCH (08:19)
[2023-12-28] MEDS: thiamine 100mg tablet PO SCH (08:19)
[2023-12-28] MEDS: folic acid 1mg tablet PO SCH (08:19)
[2023-12-28] MEDS: finasteride 5mg tablet PO SCH (11:39)
[2023-12-28] MEDS: chlordiazePOXIDE 25mg capsule NG SCH (16:46)
[2023-12-28] MEDS: lactose-reduced food (Ensure Enlive) - 237ml bottle NG SCH (18:00)
[2023-12-28] MEDS: labetalol 100mg tablet NG SCH (19:30)
[2023-12-28] MEDS ORDERED: iohexol 350MG/ML 100ml bottle IV ONE (20:03)
[2023-12-28] MEDS: acetaminophen 325mg tablet NG PRN (23:40)
[2023-12-29] VITALS (13 sets, daily range): BP systolic 102–124; BP diastolic 71–86; PULSE 64–82; RESP 13–24; TEMP 97.6–98.8; O2SAT 91–97
[2023-12-29] MEDS: thiamine 100mg tablet NG SCH (07:15)
[2023-12-29] MEDS: folic acid 1mg tablet NG SCH (07:15)
[2023-12-29 07:17] LABS: BASOPHILS % (AUTO) 0.3 % (0-1); EOSINOPHILS # (AUTO) 0.3 X10'3 (0-0.9); EOSINOPHILS % (AUTO) 2.2 % (0-6); HEMATOCRIT 33.1 % (42.0-52.0); HEMOGLOBIN 11.1 g/dl (14.0-17.9); LYMPHOCYTES # (AUTO) 0.9 X10'3 (1.1-4.8); LYMPHOCYTES % (AUTO) 6.7 % (21-51); MEAN CORPUSCULAR HEMOGLOBIN 29.3 PG (27.0-31.0); MEAN CORPUSCULAR HGB CONC 33.4 g/dL (33.0-36.5); MEAN CORPUSCULAR VOLUME 87.7 FL (78-98); MEAN PLATELET VOLUME 8.3 FL (7.4-10.4); MONOCYTES % (AUTO) 15.2 % (2-12); NEUTROPHILS # (AUTO) 10.1 X10'3 (1.8-7.7); NEUTROPHILS % (AUTO) 75.6 % (42-75); PLATELET COUNT 246 X10'3 (140-440); RED BLOOD COUNT 3.77 X10'6 (4.70-6.10); RED CELL DISTRIBUTION WIDTH 15.2 % (11.5-14.5); WHITE BLOOD COUNT 13.4 X10'3 (4.5-11.0)
[2023-12-29 07:37] LABS: ALBUMIN 2.2 G/DL (3.4-5.0); ANION GAP 8 (8-16); BLOOD UREA NITROGEN 28 MG/DL (7-18); BUN/CREATININE RATIO 18.3 (10.0-20.0); CALCIUM 7.9 MG/DL (8.5-10.1); CHLORIDE 109 MMOL/L (99-107); CREATININE 1.53 MG/DL (0.60-1.10); FREE T4 (FREE THYROXINE) 1.22 NG/DL (0.73-1.40); GLUCOSE 103 MG/DL (70-104); MAGNESIUM 2.2 MG/DL (1.5-2.4); POTASSIUM 3.4 MMOL/L (3.5-5.1); SODIUM 140 MMOL/L (135-145); THYROID STIMULATING HORMONE 1.59 ulU/ml (0.34-4.50); TOTAL CARBON DIOXIDE 23.1 MMOL/L (24-32); eCRCL 55 ML/MIN; eGFR 46 ML/MIN
[2023-12-29] MEDS ORDERED: magnesium sulf-water 2g/50mL 50 ML IV PRN (16:40)
[2023-12-29] MEDS ORDERED: potassium Cl 20 mEq SR tablet PO PRN (16:40)
[2023-12-29] MEDS ORDERED: magnesium sulf-water 4G/100mL 100 ML IV PRN (16:40)
[2023-12-29] MEDS ORDERED: magnesium Cl slow-release 64mg tablet PO PRN (16:40)
[2023-12-29] MEDS ORDERED: potassium Cl 40MEQ/1/2NS 520ml 520 ML IV PRN (16:40)
[2023-12-29] MEDS: potassium Cl 20 mEq SR tablet PO PRN (19:13)
[2023-12-30] VITALS (28 sets, daily range): BP systolic 111–140; BP diastolic 63–91; PULSE 67–95; RESP 16–24; TEMP 97.9–101; O2SAT 90–98
[2023-12-30 07:26] LABS: MAGNESIUM 2.1 MG/DL (1.5-2.4); PREALBUMIN 8.2 MG/DL (19-36)
[2023-12-30] MEDS ORDERED: chlordiazePOXIDE 25mg capsule NG SCH (08:00)
[2023-12-30] MEDS ORDERED: chlordiazePOXIDE 25mg capsule PO SCH (09:15)
[2023-12-30] MEDS ORDERED: folic acid 1mg tablet PO SCH (09:18)
[2023-12-30] MEDS: folic acid 1mg tablet PO SCH ×2 (09:50)
[2023-12-30] MEDS: chlordiazePOXIDE 25mg capsule PO SCH (09:50)
[2023-12-30 10:33] LABS: ABG BASE EXCESS -0.9 mmol/L (-2.0-3.0); ABG HCO3 21.2 mmol/L (21.0-28.0); ABG OXYGEN SATURATION 95.1 % (94.0-98.0); ABG PCO2 (T) 27.9 mmHg (35.0-48.0); ABG PH (T) 7.499 (7.350-7.450); ABG PO2 (T) 73.4 mmHg (83.0-108.0); ALLEN'S TEST POSITIVE; FCOHb 0.4 % (0.5-1.5); FHHb 4.9 % (0.0-5.0); FLOW 4 L/min; FMetHb 0.3 % (0.0-1.5); FO2Hb 94.4 % (94.0-98.0); MODE NASAL CANNULA; TOTAL HEMOGLOBIN 12.1 G/dl (13.5-17.5)
[2023-12-30] MEDS: acetaminophen 325mg tablet PO PRN (12:47)
[2023-12-30] MEDS: lactose-reduced food (Ensure Enlive) - 237ml bottle PO SCH (13:22)
[2023-12-31] VITALS (15 sets, daily range): BP systolic 111–140; BP diastolic 79–96; PULSE 68–100; RESP 12–20; TEMP 98.2–98.9; O2SAT 91–95
[2023-12-31] MEDS: haloperidol lactate 5mg/ml inj IVH PRN (03:30)
[2023-12-31 06:52] LABS: ALANINE AMINOTRANSFERASE 84 U/L (12-78); ALBUMIN 2.3 G/DL (3.4-5.0); ALBUMIN/GLOBULIN RATIO 0.5 (1.1-1.5); ALKALINE PHOSPHATASE 72 IU/L (46-116); ANION GAP 9 (8-16); ASPARTATE AMINO TRANSFERASE 68 U/L (10-37); BILIRUBIN,TOTAL 0.4 MG/DL (0.1-1.0); BLOOD UREA NITROGEN 20 MG/DL (7-18); BUN/CREATININE RATIO 13.6 (10.0-20.0); CALCIUM 8.3 MG/DL (8.5-10.1); CHLORIDE 105 MMOL/L (99-107); CREATININE 1.47 MG/DL (0.60-1.10); GLUCOSE 101 MG/DL (70-104); SODIUM 138 MMOL/L (135-145); TOTAL CARBON DIOXIDE 23.6 MMOL/L (24-32); TOTAL PROTEIN 6.6 G/DL (6.4-8.2); eCRCL 57 ML/MIN; eGFR 49 ML/MIN
[2023-12-31] MEDS ORDERED: QUEtiapine 25mg tablet PO SCH (08:00)
[2023-12-31] MEDS: QUEtiapine 25mg tablet PO SCH ×2 (11:43→19:04)
[2023-12-31] MEDS: labetalol 100mg tablet NG SCH (14:00)
[2023-12-31] MEDS ORDERED: labetalol 100mg tablet NG SCH (14:00)
[2023-12-31] MEDS: hydrALAZINE 25 MG tablet PO SCH (16:00)
[2023-12-31] MEDS ORDERED: hyDRALAzine 10mg tablet PO SCH (16:00)
[2023-12-31] MEDS: amLODIPine 5mg tablet PO SCH (19:11)
[2023-12-31] MEDS: normal saline 1000ml 1,000 ML IV SCH (23:20)
[2024-01-01] VITALS (15 sets, daily range): BP systolic 103–122; BP diastolic 58–99; PULSE 81–95; RESP 14–24; TEMP 97.4–99.2; O2SAT 90–96
[2024-01-01 06:00] LABS: BASOPHILS # (AUTO) 0.1 X10'3 (0-0.2); BASOPHILS % (AUTO) 0.4 % (0-1); EOSINOPHILS # (AUTO) 0.3 X10'3 (0-0.9); EOSINOPHILS % (AUTO) 1.9 % (0-6); HEMATOCRIT 37.5 % (42.0-52.0); HEMOGLOBIN 12.5 g/dl (14.0-17.9); LYMPHOCYTES # (AUTO) 1.1 X10'3 (1.1-4.8); LYMPHOCYTES % (AUTO) 7.4 % (21-51); MEAN CORPUSCULAR HEMOGLOBIN 29.2 PG (27.0-31.0); MEAN CORPUSCULAR HGB CONC 33.4 g/dL (33.0-36.5); MEAN CORPUSCULAR VOLUME 87.3 FL (78-98); MEAN PLATELET VOLUME 8.3 FL (7.4-10.4); MONOCYTES # (AUTO) 1.9 X10'3 (0-0.9); MONOCYTES % (AUTO) 12.1 % (2-12); NEUTROPHILS % (AUTO) 78.2 % (42-75); PLATELET COUNT 337 X10'3 (140-440); RED CELL DISTRIBUTION WIDTH 15.1 % (11.5-14.5); WHITE BLOOD COUNT 15.4 X10'3 (4.5-11.0)
[2024-01-01] MEDS: chlordiazePOXIDE 25mg capsule PO SCH (07:04)
[2024-01-01 07:15] LABS: ALANINE AMINOTRANSFERASE 79 U/L (12-78); ALBUMIN 2.2 G/DL (3.4-5.0); ALBUMIN/GLOBULIN RATIO 0.5 (1.1-1.5); ALKALINE PHOSPHATASE 86 IU/L (46-116); ANION GAP 8 (8-16); ASPARTATE AMINO TRANSFERASE 56 U/L (10-37); BILIRUBIN,TOTAL 0.4 MG/DL (0.1-1.0); BLOOD UREA NITROGEN 23 MG/DL (7-18); BUN/CREATININE RATIO 15.1 (10.0-20.0); CALCIUM 8.2 MG/DL (8.5-10.1); CHLORIDE 104 MMOL/L (99-107); CREATININE 1.52 MG/DL (0.60-1.10); GLUCOSE 96 MG/DL (70-104); MAGNESIUM 2.4 MG/DL (1.5-2.4); PHOSPHORUS 4.4 MG/DL (2.3-4.5); POTASSIUM 3.9 MMOL/L (3.5-5.1); SODIUM 137 MMOL/L (135-145); TOTAL CARBON DIOXIDE 24.6 MMOL/L (24-32); TOTAL PROTEIN 6.6 G/DL (6.4-8.2); eCRCL 55 ML/MIN; eGFR 47 ML/MIN
[2024-01-01] MEDS: QUEtiapine 25mg tablet PO SCH (21:00)
[2024-01-02] VITALS (13 sets, daily range): BP systolic 112–144; BP diastolic 76–95; PULSE 74–97; RESP 16–21; TEMP 97.5–98.4; O2SAT 92–97
[2024-01-02 05:57] LABS: BASOPHILS # (AUTO) 0.1 X10'3 (0-0.2); BASOPHILS % (AUTO) 0.4 % (0-1); EOSINOPHILS # (AUTO) 0.3 X10'3 (0-0.9); EOSINOPHILS % (AUTO) 1.8 % (0-6); HEMATOCRIT 36.9 % (42.0-52.0); HEMOGLOBIN 12.1 g/dl (14.0-17.9); LYMPHOCYTES # (AUTO) 1.2 X10'3 (1.1-4.8); LYMPHOCYTES % (AUTO) 7.9 % (21-51); MEAN CORPUSCULAR HEMOGLOBIN 28.4 PG (27.0-31.0); MEAN CORPUSCULAR HGB CONC 32.7 g/dL (33.0-36.5); MEAN CORPUSCULAR VOLUME 86.9 FL (78-98); MEAN PLATELET VOLUME 8.5 FL (7.4-10.4); MONOCYTES # (AUTO) 1.9 X10'3 (0-0.9); MONOCYTES % (AUTO) 12.8 % (2-12); NEUTROPHILS # (AUTO) 11.8 X10'3 (1.8-7.7); NEUTROPHILS % (AUTO) 77.1 % (42-75); PLATELET COUNT 362 X10'3 (140-440); RED BLOOD COUNT 4.24 X10'6 (4.70-6.10); RED CELL DISTRIBUTION WIDTH 15.2 % (11.5-14.5); WHITE BLOOD COUNT 15.2 X10'3 (4.5-11.0)
[2024-01-02] MEDS: labetalol 20mg/4ml (5mg/ml) syringe IV PRN (06:26)
[2024-01-02 06:27] LABS: ALANINE AMINOTRANSFERASE 129 U/L (12-78); ALBUMIN 2.2 G/DL (3.4-5.0); ALBUMIN/GLOBULIN RATIO 0.5 (1.1-1.5); ALKALINE PHOSPHATASE 99 IU/L (46-116); ANION GAP 9 (8-16); ASPARTATE AMINO TRANSFERASE 118 U/L (10-37); BILIRUBIN,TOTAL 0.4 MG/DL (0.1-1.0); BLOOD UREA NITROGEN 27 MG/DL (7-18); BUN/CREATININE RATIO 17.5 (10.0-20.0); CHLORIDE 104 MMOL/L (99-107); CREATININE 1.54 MG/DL (0.60-1.10); GLUCOSE 92 MG/DL (70-104); MAGNESIUM 2.3 MG/DL (1.5-2.4); PHOSPHORUS 3.7 MG/DL (2.3-4.5); POTASSIUM 4.2 MMOL/L (3.5-5.1); SODIUM 136 MMOL/L (135-145); TOTAL CARBON DIOXIDE 23.2 MMOL/L (24-32); TOTAL PROTEIN 6.6 G/DL (6.4-8.2); eCRCL 55 ML/MIN; eGFR 46 ML/MIN
[2024-01-02] MEDS: labetalol 100mg tablet PO SCH (07:16)
[2024-01-02] MEDS: thiamine 100mg tablet PO SCH (07:16)
[2024-01-02] MEDS: QUEtiapine 25mg tablet PO SCH (19:36)
[2024-01-03] VITALS (12 sets, daily range): BP systolic 119–137; BP diastolic 79–102; PULSE 70–82; RESP 14–17; TEMP 97.5–99.2; O2SAT 90–96
[2024-01-03 06:50] LABS: ALANINE AMINOTRANSFERASE 147 U/L (12-78); ALBUMIN 2.2 G/DL (3.4-5.0); ALBUMIN/GLOBULIN RATIO 0.5 (1.1-1.5); ALKALINE PHOSPHATASE 105 IU/L (46-116); ANION GAP 7 (8-16); ASPARTATE AMINO TRANSFERASE 120 U/L (10-37); BILIRUBIN,TOTAL 0.4 MG/DL (0.1-1.0); BLOOD UREA NITROGEN 34 MG/DL (7-18); BUN/CREATININE RATIO 21.9 (10.0-20.0); CHLORIDE 105 MMOL/L (99-107); CREATININE 1.55 MG/DL (0.60-1.10); GLUCOSE 112 MG/DL (70-104); MAGNESIUM 2.5 MG/DL (1.5-2.4); PHOSPHORUS 3.6 MG/DL (2.3-4.5); PREALBUMIN 9.7 MG/DL (19-36); SODIUM 136 MMOL/L (135-145); TOTAL CARBON DIOXIDE 24.3 MMOL/L (24-32); TOTAL PROTEIN 6.7 G/DL (6.4-8.2); eCRCL 54 ML/MIN; eGFR 46 ML/MIN
[2024-01-03 07:15] LABS: BASOPHILS % (AUTO) 0.3 % (0-1); EOSINOPHILS # (AUTO) 0.3 X10'3 (0-0.9); EOSINOPHILS % (AUTO) 2.2 % (0-6); HEMATOCRIT 35.8 % (42.0-52.0); HEMOGLOBIN 11.7 g/dl (14.0-17.9); LYMPHOCYTES # (AUTO) 1.1 X10'3 (1.1-4.8); LYMPHOCYTES % (AUTO) 7.5 % (21-51); MEAN CORPUSCULAR HEMOGLOBIN 28.6 PG (27.0-31.0); MEAN CORPUSCULAR HGB CONC 32.7 g/dL (33.0-36.5); MEAN CORPUSCULAR VOLUME 87.5 FL (78-98); MEAN PLATELET VOLUME 8.3 FL (7.4-10.4); MONOCYTES % (AUTO) 13.6 % (2-12); NEUTROPHILS # (AUTO) 10.9 X10'3 (1.8-7.7); NEUTROPHILS % (AUTO) 76.4 % (42-75); PLATELET COUNT 356 X10'3 (140-440); RED CELL DISTRIBUTION WIDTH 15.2 % (11.5-14.5); WHITE BLOOD COUNT 14.3 X10'3 (4.5-11.0)
[2024-01-03] MEDS ORDERED: labetalol 20mg/4ml (5mg/ml) syringe IV PRN (08:35)
[2024-01-03] MEDS: metoprolol succinate 25mg (24-HOUR) SR. Tablet PO SCH (08:54)
[2024-01-03] MEDS: lactobacillus rhamnosus 10,000 MMU CELLS/CAPSULE PO SCH (19:33)
[2024-01-04] VITALS (9 sets, daily range): BP systolic 120–138; BP diastolic 75–105; PULSE 69–80; RESP 13–21; TEMP 97.6–98.6; O2SAT 92–99
[2024-01-04] MEDS: chlordiazePOXIDE 5mg capsule PO SCH (08:00)
[2024-01-04 08:09] LABS: BASOPHILS # (AUTO) 0.1 X10'3 (0-0.2); BASOPHILS % (AUTO) 0.7 % (0-1); EOSINOPHILS # (AUTO) 0.3 X10'3 (0-0.9); EOSINOPHILS % (AUTO) 2.5 % (0-6); HEMOGLOBIN 12.3 g/dl (14.0-17.9); LYMPHOCYTES # (AUTO) 0.9 X10'3 (1.1-4.8); LYMPHOCYTES % (AUTO) 6.5 % (21-51); MEAN CORPUSCULAR HEMOGLOBIN 28.3 PG (27.0-31.0); MEAN CORPUSCULAR HGB CONC 32.3 g/dL (33.0-36.5); MEAN CORPUSCULAR VOLUME 87.6 FL (78-98); MEAN PLATELET VOLUME 8.3 FL (7.4-10.4); MONOCYTES % (AUTO) 14.9 % (2-12); NEUTROPHILS # (AUTO) 10.3 X10'3 (1.8-7.7); NEUTROPHILS % (AUTO) 75.4 % (42-75); PLATELET COUNT 418 X10'3 (140-440); RED BLOOD COUNT 4.34 X10'6 (4.70-6.10); RED CELL DISTRIBUTION WIDTH 15.3 % (11.5-14.5); WHITE BLOOD COUNT 13.6 X10'3 (4.5-11.0)
[2024-01-04 08:35] LABS: ALANINE AMINOTRANSFERASE 143 U/L (12-78); ALBUMIN 2.4 G/DL (3.4-5.0); ALBUMIN/GLOBULIN RATIO 0.5 (1.1-1.5); ALKALINE PHOSPHATASE 112 IU/L (46-116); ANION GAP 9 (8-16); ASPARTATE AMINO TRANSFERASE 95 U/L (10-37); BILIRUBIN,TOTAL 0.4 MG/DL (0.1-1.0); BLOOD UREA NITROGEN 30 MG/DL (7-18); CALCIUM 8.5 MG/DL (8.5-10.1); CHLORIDE 104 MMOL/L (99-107); CREATININE 1.43 MG/DL (0.60-1.10); GLUCOSE 87 MG/DL (70-104); MAGNESIUM 2.3 MG/DL (1.5-2.4); PHOSPHORUS 3.9 MG/DL (2.3-4.5); POTASSIUM 4.2 MMOL/L (3.5-5.1); SODIUM 135 MMOL/L (135-145); TOTAL CARBON DIOXIDE 22.3 MMOL/L (24-32); TOTAL PROTEIN 7.2 G/DL (6.4-8.2); eCRCL 59 ML/MIN; eGFR 50 ML/MIN
[2024-01-04 09:29] LABS: ALANINE AMINOTRANSFERASE 146 U/L (12-78); ALBUMIN 2.4 G/DL (3.4-5.0); ALBUMIN/GLOBULIN RATIO 0.5 (1.1-1.5); ALKALINE PHOSPHATASE 117 IU/L (46-116); ANION GAP 10 (8-16); ASPARTATE AMINO TRANSFERASE 91 U/L (10-37); BILIRUBIN,TOTAL 0.5 MG/DL (0.1-1.0); BLOOD UREA NITROGEN 29 MG/DL (7-18); BUN/CREATININE RATIO 21.3 (10.0-20.0); CALCIUM 8.3 MG/DL (8.5-10.1); CHLORIDE 104 MMOL/L (99-107); CREATININE 1.36 MG/DL (0.60-1.10); GLUCOSE 91 MG/DL (70-104); POTASSIUM 4.5 MMOL/L (3.5-5.1); SODIUM 135 MMOL/L (135-145); TOTAL CARBON DIOXIDE 20.8 MMOL/L (24-32); eCRCL 62 ML/MIN; eGFR 53 ML/MIN
[2024-01-04] MEDS: amLODIPine 5mg tablet PO SCH (10:38)
[2024-01-04] MEDS: HYDROcodone/acetaminophen 10/325mg tab PO PRN (20:22)
[2024-01-05] VITALS (13 sets, daily range): BP systolic 113–132; BP diastolic 73–86; PULSE 61–82; RESP 13–18; TEMP 97.2–97.8; O2SAT 92–97
[2024-01-05 07:47] LABS: BASOPHILS # (AUTO) 0.1 X10'3 (0-0.2); BASOPHILS % (AUTO) 0.4 % (0-1); EOSINOPHILS # (AUTO) 0.3 X10'3 (0-0.9); EOSINOPHILS % (AUTO) 2.1 % (0-6); HEMATOCRIT 36.8 % (42.0-52.0); HEMOGLOBIN 11.8 g/dl (14.0-17.9); LYMPHOCYTES # (AUTO) 1.4 X10'3 (1.1-4.8); LYMPHOCYTES % (AUTO) 9.4 % (21-51); MEAN CORPUSCULAR HEMOGLOBIN 27.8 PG (27.0-31.0); MEAN PLATELET VOLUME 8.4 FL (7.4-10.4); MONOCYTES # (AUTO) 2.2 X10'3 (0-0.9); MONOCYTES % (AUTO) 15.5 % (2-12); NEUTROPHILS # (AUTO) 10.5 X10'3 (1.8-7.7); NEUTROPHILS % (AUTO) 72.6 % (42-75); PLATELET COUNT 440 X10'3 (140-440); RED BLOOD COUNT 4.23 X10'6 (4.70-6.10); RED CELL DISTRIBUTION WIDTH 15.3 % (11.5-14.5); WHITE BLOOD COUNT 14.4 X10'3 (4.5-11.0)
[2024-01-05 08:01] LABS: ALANINE AMINOTRANSFERASE 142 U/L (12-78); ALBUMIN 2.3 G/DL (3.4-5.0); ALBUMIN/GLOBULIN RATIO 0.5 (1.1-1.5); ALKALINE PHOSPHATASE 124 IU/L (46-116); ANION GAP 10 (8-16); ASPARTATE AMINO TRANSFERASE 85 U/L (10-37); BILIRUBIN,TOTAL 0.4 MG/DL (0.1-1.0); BLOOD UREA NITROGEN 33 MG/DL (7-18); BUN/CREATININE RATIO 21.3 (10.0-20.0); CALCIUM 8.7 MG/DL (8.5-10.1); CHLORIDE 103 MMOL/L (99-107); CREATININE 1.55 MG/DL (0.60-1.10); GLUCOSE 84 MG/DL (70-104); MAGNESIUM 2.4 MG/DL (1.5-2.4); PHOSPHORUS 3.8 MG/DL (2.3-4.5); SODIUM 135 MMOL/L (135-145); TOTAL CARBON DIOXIDE 22.2 MMOL/L (24-32); TOTAL PROTEIN 7.1 G/DL (6.4-8.2); eCRCL 54 ML/MIN; eGFR 46 ML/MIN
[2024-01-05] MEDS ORDERED: chlordiazePOXIDE 5mg capsule PO SCH (08:30)
[2024-01-05 10:26] LABS: PLATELET ESTIMATE NORMAL; TOTAL CELLS COUNTED 100
[2024-01-05] MEDS: lactose-reduced food (Ensure Enlive) - 237ml bottle PO SCH (11:55)
[2024-01-05] MEDS ORDERED: hyDRALAzine 10mg tablet PO SCH ×2 (12:00→12:30)
[2024-01-05] MEDS: lactose-reduced food (Ensure High Protein) 237ml bottle PO SCH (13:21)
[2024-01-05] MEDS: HYDROcodone/acetaminophen 5mg/325mg tablet PO PRN (15:12)
[2024-01-05] MEDS: QUEtiapine 25mg tablet PO SCH (20:08)
[2024-01-05] MEDS: hydrALAZINE 25 MG tablet PO SCH (20:08)
[2024-01-05] MEDS: amLODIPine 5mg tablet PO SCH (20:15)
[2024-01-06] VITALS (10 sets, daily range): BP systolic 112–132; BP diastolic 66–85; PULSE 70–83; RESP 13–18; TEMP 97.3–98.4; O2SAT 93–98
[2024-01-06 07:32] LABS: ALANINE AMINOTRANSFERASE 126 U/L (12-78); ALBUMIN 2.3 G/DL (3.4-5.0); ALBUMIN/GLOBULIN RATIO 0.5 (1.1-1.5); ALKALINE PHOSPHATASE 109 IU/L (46-116); ANION GAP 9 (8-16); ASPARTATE AMINO TRANSFERASE 74 U/L (10-37); BILIRUBIN,TOTAL 0.3 MG/DL (0.1-1.0); BLOOD UREA NITROGEN 40 MG/DL (7-18); BUN/CREATININE RATIO 25.6 (10.0-20.0); CALCIUM 8.4 MG/DL (8.5-10.1); CHLORIDE 105 MMOL/L (99-107); CREATININE 1.56 MG/DL (0.60-1.10); GLUCOSE 83 MG/DL (70-104); MAGNESIUM 2.4 MG/DL (1.5-2.4); PHOSPHORUS 3.9 MG/DL (2.3-4.5); POTASSIUM 4.2 MMOL/L (3.5-5.1); PREALBUMIN 10.2 MG/DL (19-36); SODIUM 137 MMOL/L (135-145); TOTAL CARBON DIOXIDE 23.3 MMOL/L (24-32); TOTAL PROTEIN 6.8 G/DL (6.4-8.2); eCRCL 54 ML/MIN; eGFR 45 ML/MIN
[2024-01-06] MEDS: heparin, porcine 5000 units/ml vial SQ SCH (12:45)
[2024-01-06] MEDS: haloperidol lactate 5mg/ml inj IM PRN (22:07)
[2024-01-06] MEDS: LORazepam 2 mg/ml vial IV PRN (22:20)
[2024-01-07 02:00] VITALS: BP 127/79; PULSE 70; RESP 18; TEMP 97.6; O2SAT 97
[2024-01-07 06:00] VITALS: BP 127/74; PULSE 80; RESP 18; TEMP 97; O2SAT 97
[2024-01-07 06:45] LABS: BASOPHILS # (AUTO) 0.1 X10'3 (0-0.2); BASOPHILS % (AUTO) 0.7 % (0-1); EOSINOPHILS # (AUTO) 0.3 X10'3 (0-0.9); EOSINOPHILS % (AUTO) 2.1 % (0-6); HEMATOCRIT 35.3 % (42.0-52.0); HEMOGLOBIN 11.9 g/dl (14.0-17.9); LYMPHOCYTES # (AUTO) 1.1 X10'3 (1.1-4.8); LYMPHOCYTES % (AUTO) 8.6 % (21-51); MEAN CORPUSCULAR HEMOGLOBIN 28.8 PG (27.0-31.0); MEAN CORPUSCULAR HGB CONC 33.6 g/dL (33.0-36.5); MEAN CORPUSCULAR VOLUME 85.6 FL (78-98); MEAN PLATELET VOLUME 8.1 FL (7.4-10.4); MONOCYTES # (AUTO) 1.8 X10'3 (0-0.9); MONOCYTES % (AUTO) 13.9 % (2-12); NEUTROPHILS # (AUTO) 9.7 X10'3 (1.8-7.7); NEUTROPHILS % (AUTO) 74.7 % (42-75); PLATELET COUNT 433 X10'3 (140-440); RED BLOOD COUNT 4.12 X10'6 (4.70-6.10); RED CELL DISTRIBUTION WIDTH 15.1 % (11.5-14.5)
[2024-01-07 07:23] LABS: ALANINE AMINOTRANSFERASE 122 U/L (12-78); ALBUMIN 2.5 G/DL (3.4-5.0); ALBUMIN/GLOBULIN RATIO 0.5 (1.1-1.5); ALKALINE PHOSPHATASE 112 IU/L (46-116); ANION GAP 10 (8-16); ASPARTATE AMINO TRANSFERASE 69 U/L (10-37); BILIRUBIN,TOTAL 0.4 MG/DL (0.1-1.0); BLOOD UREA NITROGEN 34 MG/DL (7-18); BUN/CREATININE RATIO 22.7 (10.0-20.0); CALCIUM 8.5 MG/DL (8.5-10.1); CHLORIDE 105 MMOL/L (99-107); GLUCOSE 83 MG/DL (70-104); SODIUM 137 MMOL/L (135-145); TOTAL CARBON DIOXIDE 22.1 MMOL/L (24-32); TOTAL PROTEIN 7.2 G/DL (6.4-8.2); eCRCL 56 ML/MIN; eGFR 47 ML/MIN
[2024-01-07 08:00] VITALS: RESP 18; O2SAT 97
[2024-01-07 11:00] VITALS: BP 112/65; PULSE 70; RESP 16; TEMP 97.6; O2SAT 94
[2024-01-07 15:00] VITALS: BP 131/79; PULSE 70; RESP 16; TEMP 97.8; O2SAT 96
[2024-01-07] MEDS ORDERED: thiamine tablet PO (15:47)
[2024-01-07] MEDS ORDERED: QUET25TA36 PO (15:47)
[2024-01-07] MEDS ORDERED: LACT-237 PO (15:47)
[2024-01-07] MEDS ORDERED: NOR5T PO (15:47)
[2024-01-07] MEDS ORDERED: METO-395 PO (15:47)
[2024-01-07] MEDS ORDERED: LACT1CAP26 PO (15:47)
[2024-01-07] MEDS ORDERED: FOLI1TAB27 PO (15:47)
[2024-01-07] MEDS ORDERED: HYDR25TA90 PO (15:47)
[2024-01-07] MEDS ORDERED: THIA50TA10 PO (15:49)
[2024-01-07 18:00] VITALS: BP 112/75; PULSE 69; RESP 18; TEMP 97.8; O2SAT 96
[2024-01-07] MEDS: nicotine 21mg patch - 24 hr TD SCH (20:22)
[2024-01-08 02:00] VITALS: BP 115/76; PULSE 79; RESP 15; TEMP 97.8; O2SAT 98
[2024-01-08 08:00] VITALS: RESP 14; O2SAT 95
[2024-01-08 08:41] VITALS: PULSE 74; RESP 16; O2SAT 96
[2024-01-08 08:49] VITALS: PULSE 84; RESP 20
[2024-01-08] MEDS: gabapentin 300mg capsule PO SCH (09:05)
[2024-01-08 09:30] LABS: BASOPHILS # (AUTO) 0.1 X10'3 (0-0.2); BASOPHILS % (AUTO) 0.8 % (0-1); EOSINOPHILS # (AUTO) 0.3 X10'3 (0-0.9); EOSINOPHILS % (AUTO) 2.5 % (0-6); HEMATOCRIT 36.9 % (42.0-52.0); HEMOGLOBIN 12.2 g/dl (14.0-17.9); LYMPHOCYTES # (AUTO) 1.1 X10'3 (1.1-4.8); LYMPHOCYTES % (AUTO) 8.9 % (21-51); MEAN CORPUSCULAR HEMOGLOBIN 28.4 PG (27.0-31.0); MEAN CORPUSCULAR HGB CONC 33.1 g/dL (33.0-36.5); MEAN CORPUSCULAR VOLUME 85.8 FL (78-98); MONOCYTES # (AUTO) 1.5 X10'3 (0-0.9); MONOCYTES % (AUTO) 12.1 % (2-12); NEUTROPHILS # (AUTO) 9.3 X10'3 (1.8-7.7); NEUTROPHILS % (AUTO) 75.7 % (42-75); PLATELET COUNT 432 X10'3 (140-440); RED CELL DISTRIBUTION WIDTH 15.1 % (11.5-14.5); WHITE BLOOD COUNT 12.2 X10'3 (4.5-11.0)
[2024-01-08 09:40] LABS: ALANINE AMINOTRANSFERASE 98 U/L (12-78); ALBUMIN 2.6 G/DL (3.4-5.0); ALBUMIN/GLOBULIN RATIO 0.5 (1.1-1.5); ALKALINE PHOSPHATASE 112 IU/L (46-116); ANION GAP 10 (8-16); ASPARTATE AMINO TRANSFERASE 48 U/L (10-37); BILIRUBIN,TOTAL 0.4 MG/DL (0.1-1.0); BLOOD UREA NITROGEN 30 MG/DL (7-18); BUN/CREATININE RATIO 22.2 (10.0-20.0); CALCIUM 8.9 MG/DL (8.5-10.1); CHLORIDE 105 MMOL/L (99-107); CREATININE 1.35 MG/DL (0.60-1.10); POTASSIUM 4.1 MMOL/L (3.5-5.1); SODIUM 137 MMOL/L (135-145); TOTAL CARBON DIOXIDE 22.4 MMOL/L (24-32); TOTAL PROTEIN 7.4 G/DL (6.4-8.2); eCRCL 62 ML/MIN; eGFR 54 ML/MIN
[2024-01-08 09:41] VITALS: BP 117/71; PULSE 70; RESP 14; TEMP 98.5; O2SAT 95
[2024-01-08 09:43] LABS: GLUCOSE 112 MG/DL (70-104)
[2024-01-08 11:00] VITALS: BP 117/73; PULSE 69; RESP 16; TEMP 98; O2SAT 100
[2024-01-08] MEDS ORDERED: GABA300C PO (14:05)
== END 2024-01-08 14:05 | disposition home health service (06) | DRG 917 ==
LOC: ER 23:04 → ED HOLD 12-24 01:03 → PCU 3S 12-24 10:23
PROVIDERS: ADMIT Internal Medicine Critical Care Medicine; ATTEND Family Medicine
PROC: 4A00X4Z Measurement of Central Nervous Electrical Activity, External Approach (ICD-10-PCS; principal; 2023-12-30)
DX: T40.2X1A Poisoning by other opioids, accidental (unintentional), initial encounter (principal); G92.8 Other toxic encephalopathy; I71.010 Dissection of ascending aorta; J18.9 Pneumonia, unspecified organism; N17.0 Acute kidney failure with tubular necrosis; J96.01 Acute respiratory failure with hypoxia; E44.0 Moderate protein-calorie malnutrition; R65.10 Systemic inflammatory response syndrome (SIRS) of non-infectious origin without acute organ dysfunction; I82.612 Acute embolism and thrombosis of superficial veins of left upper extremity; M80.84 Other osteoporosis with current pathological fracture, hand; D63.8 Anemia in other chronic diseases classified elsewhere; C61 Malignant neoplasm of prostate; I10 Essential (primary) hypertension; F19.10 Other psychoactive substance abuse, uncomplicated; E87.6 Hypokalemia; E87.8 Other disorders of electrolyte and fluid balance, not elsewhere classified; Z68.24 Body mass index [BMI] 24.0-24.9, adult; Y92.89 Other specified places as the place of occurrence of the external cause
CPT/HCPCS: 36415; 36600; 70450; 71045; 71275; 73130; 74174; 76700; 80048; 80053; 80202; 80305; 80320; 82140; 82607; 82728; 82803; 82948; 83540; 83605; 83735; 83880; 84100; 84134; 84145; 84153; 84154; 84439; 84443; 84466; 84484; 85007; 85018; 85025; 85610; 85651; 85730; 86140; 86885; 86900; 86901; 87040; 87081; 92508; 92616; 93005; 93308; 93971; 94640; 94760; 95816; 97110; 97116; 97162; 97530; 97535; 99285; A4615; A6258; A6590; G0378; J0131; J1171; J1630; J1644; J1956; J2060; J2405; J3370; J3411; J3480; J3490; J7030; J7040; J7070; Q9967